=== PATIENT | male | born 1955 | race Caucasian/White ===

== ENCOUNTER 2017-11-26 19:54 | Observation (INO) | payer OTHER ==
[2017-11-26 20:22] LABS: ADD MAN DIFF? NO
[2017-11-26 20:24] LABS: BASOPHILS % 0.3 % (0.0-2.0); EOSINOPHILS # 0.3 10^3/ul (0.0-0.5); EOSINOPHILS % 2.2 % (0.0-7.0); HEMATOCRIT 43.2 % (42.0-52.0); HEMOGLOBIN 15.1 g/dl (14.0-18.0); LYMPHOCYTES # 1.8 10^3/ul (0.8-2.9); LYMPHOCYTES % 14.5 % (15.0-51.0); MEAN CORPUSCULAR VOLUME 94.5 fl (82.0-101.0); MEAN PLATELET VOLUME 10.1 fl (7.4-10.4); MONOCYTE # 0.7 10^3/ul (0.3-0.9); MONOCYTES % 5.6 % (0.0-11.0); NEUTROPHIL # 9.6 10^3/ul (1.6-7.5); NEUTROPHILS % 76.9 % (39.0-77.0); PLATELET COUNT 230 10^3/UL (140-415); RED BLOOD COUNT 4.57 10^6/ul (4.70-6.10); RED CELL DISTRIBUTION WIDTH 12.4 % (11.5-14.5)
[2017-11-26 20:24] LABS: WHITE BLOOD COUNT 12.4 10^3/ul (4.8-10.8)
[2017-11-26 20:42] LABS: ALANINE AMINOTRANSFERASE 27 IU/L (13-69); ALBUMIN 3.8 g/dl (3.3-4.9); ALBUMIN/GLOBULIN RATIO 1.11; ALKALINE PHOSPHATASE 53 IU/L (42-121); ANION GAP 11 (5-13); ASPARTATE AMINO TRANSFERASE 22 IU/L (15-46); BILIRUBIN,INDIRECT 0.7 mg/dl (0-1.1); BILIRUBIN,TOTAL 0.7 mg/dl (0.2-1.3); BLOOD UREA NITROGEN 25 mg/dl (7-20); CALCIUM 9.1 mg/dl (8.4-10.2); CARBON DIOXIDE 22 mmol/L (21-31); CHLORIDE 107 mmol/L (97-110); CREATININE 0.99 mg/dl (0.61-1.24); GLUCOSE 140 mg/dl (70-220); LIPASE 53 U/L (23-300); POTASSIUM 3.8 mmol/L (3.5-5.1); SODIUM 140 mmol/L (135-144); TOTAL PROTEIN 7.2 g/dl (6.1-8.1)
[2017-11-26 20:53] LABS: TROPONIN-I < 0.012 ng/ml (0.000-0.120)
[2017-11-26] MEDS: ASPIRIN 81 MG TAB PO (21:00)
[2017-11-26] MEDS ORDERED: ACETAMINOPHEN 325 MG TAB PO (22:30)
[2017-11-26] MEDS ORDERED: ONDANSETRON 4 MG INJ IV (22:30)
[2017-11-27] MEDS ORDERED: NITROGLYCERIN (SL) 0.4 MG TAB SL (00:30)
[2017-11-27] MEDS ORDERED: HYDROCODONE/APAP (5/325) TAB PO (00:30)
[2017-11-27] MEDS ORDERED: NACL 0.9% 3 ML SYG IV (02:30)
[2017-11-27] MEDS ORDERED: ACETAMINOPHEN 325 MG TAB PO (02:30)
[2017-11-27] MEDS ORDERED: ONDANSETRON 4 MG INJ IV (02:30)
[2017-11-27] MEDS ORDERED: ALBUTEROL/IPRATROPIUM (NEB) 3 ML AMP HHN (02:30)
[2017-11-27 03:38] LABS: CREATINE KINASE 55 IU/L (23-200)
[2017-11-27 03:50] LABS: CK INDEX 0.6; CK-MB 0.31 ng/ml (0.0-2.4); TROPONIN-I < 0.012 ng/ml (0.000-0.120)
[2017-11-27] MEDS: LISINOPRIL 5 MG TAB PO (08:54)
[2017-11-27] MEDS: ASPIRIN (EC) 81 MG TAB PO (08:54)
[2017-11-27] MEDS: PANTOPRAZOLE (EC) 40 MG TAB PO (08:54)
[2017-11-27] MEDS: TAMSULOSIN (SR) 0.4 MG CAP PO (08:54)
[2017-11-27] MEDS: ENOXAPARIN 40 MG/0.4 ML SYG SC (09:02)
[2017-11-28] MEDS ORDERED: PANTOPRAZOLE (EC) 40 MG TAB PO (06:00)
== END 2017-11-27 12:58 | disposition home or self-care (01) ==
LOC: E/R 19:54 → 6WM 22:17
DX: R10.13 Epigastric pain (principal); R07.9 Chest pain, unspecified; I10 Essential (primary) hypertension; N40.0 Benign prostatic hyperplasia without lower urinary tract symptoms; Z79.82 Long term (current) use of aspirin
CPT/HCPCS: 36415; 71045; 80053; 82550; 82553; 83690; 84484; 85025; 93005; 93306; 99285-25; G0378